=== PATIENT | male | born 1985 | race Two or more races ===

== ENCOUNTER 2022-06-13 11:54 | Emergency (ER) | payer BC ==
[~2022-06-13] VITALS: Ht 180.3 cm; Wt 111.1 kg
--- NOTE | 2022-06-13 12:40 | NUR ---
DR JOLLY SPEAKING W/ PT
--- NOTE | 2022-06-13 14:25 | NUR ---
TECH AT BEDSIDE FOR XRAY
[2022-06-13 15:17] VITALS: BP 139/83
--- NOTE | 2022-06-13 15:17 | NUR ---
Patient discharged to home in stable condition. Written and verbal after care instructions given. Patient verbalizes understanding of instruction.
== END 2022-06-13 15:18 | disposition home or self-care (01) ==
LOC: ER 12:27
DX: S20.211A Contusion of right front wall of thorax, initial encounter (principal); S70.311A Abrasion, right thigh, initial encounter; V09.9XXA Pedestrian injured in unspecified transport accident, initial encounter; Y93.89 Activity, other specified; Y92.410 Unspecified street and highway as the place of occurrence of the external cause; Y99.8 Other external cause status
CPT/HCPCS: 71100-TC